=== PATIENT | female | born 1975 | race Hispanic/Latino ===

== ENCOUNTER 2020-05-16 17:14 | Emergency (ER) | payer OTHER ==
[2020-05-16] MEDS ORDERED: ACETAMINOPHEN-CODEINE 300/30MG TAB ONE (17:53)
[2020-05-16] MEDS ORDERED: ORPHENADRINE CITRATE 30 MG/ML ML ONE (17:53)
[2020-05-16 18:26] LABS: BASOPHILS % (AUTO) 0.5 % (0.0-5.0); EOSINOPHILS % (AUTO) 0.5 % (0.0-8.0); HEMATOCRIT 38.7 % (36-48); LYMPHOCYTES % (AUTO) 37.7 % (21.0-51.0); MEAN CORPUSCULAR HEMOGLOBIN 30.3 pg (27.0-33.0); MEAN CORPUSCULAR HGB CONC 34.1 g/dL (32.0-36.0); MEAN CORPUSCULAR VOLUME 88.8 fL (79-99); MONOCYTES % (AUTO) 5.9 % (3.0-13.0); NEUTROPHILS % (AUTO) 55.3 % (40.0-77.0); PLATELET COUNT (AUTO) 284 K/uL (130-400); RED BLOOD CELL COUNT(AUTO) 4.36 MIL/uL (4.00-5.50); RED CELL DISTRIBUTION WIDTH 12.5 % (11.0-15.5); WHITE BLOOD COUNT (AUTO) 8.8 K/uL (4.8-10.8)
[2020-05-16 18:42] LABS: CREATININE 0.5 mg/dL (0.5-1.5); POTASSIUM 5.2 mmol/L (3.5-5.1)
[2020-05-16] MEDS ORDERED: IOHEXOL-350 75 ML VIAL IV ONE (19:18)
== END 2020-05-16 21:08 | disposition home or self-care (01) ==
LOC: EDH 17:14
DX: S30.0XXA Contusion of lower back and pelvis, initial encounter (principal); S70.12XA Contusion of left thigh, initial encounter; R10.84 Generalized abdominal pain; E78.00 Pure hypercholesterolemia, unspecified; M25.552 Pain in left hip; W01.0XXA Fall on same level from slipping, tripping and stumbling without subsequent striking against object, initial encounter; Y93.89 Activity, other specified; Y92.89 Other specified places as the place of occurrence of the external cause; Y99.8 Other external cause status
CPT/HCPCS: 36415; 73502; 73552; 74177; 80048; 85025; 96374; 99285; J2360; Q9967

== ENCOUNTER 2022-01-15 14:34 | Emergency (ER) | payer SELFPAY ==
[~2022-01-15] VITALS: Ht 121.9 cm; Wt 83.9 kg
[2022-01-15 14:38] VITALS: BP 130/64
[2022-01-15] MEDS ORDERED: BENZONATATE 100 MG CAPSULE PO SCH (15:00)
== END 2022-01-15 16:12 | disposition home or self-care (01) ==
LOC: EDH 14:34
DX: U07.1 COVID-19 (principal); E11.9 Type 2 diabetes mellitus without complications; E78.00 Pure hypercholesterolemia, unspecified
CPT/HCPCS: 99284; 71045; 87635; 87880; 87804 ×2; C9803

== ENCOUNTER → 2022-12-02 | Outpatient (CLI) | payer OTHER ==
[~2022-12-02] MED LIST: AUD IH; BENZ-39 PO
== END | disposition home or self-care (01) ==
LOC: RAH 11:07
PROVIDERS: ATTEND Internal Medicine Cardiovascular Disease
DX: Z13.6 Encounter for screening for cardiovascular disorders (principal)
CPT/HCPCS: 75571